=== PATIENT | female | born 1975 | race Caucasian/White ===

== ENCOUNTER → 2016-11-06 | Outpatient (CLI) | payer BC ==
--- NOTE | 2016-11-09 07:44 | MM ---
Reason for exam: clinical finding. Last mammogram was performed 3 years and 2 months ago. History: Took hormonal contraceptives beginning at age 18. Physical Findings: Nurse Summary: 0.5cm nodule in the left breast at 10 o'clock (nurse mayra). MG 3D Diag Mammo W/Cad TARA Bilateral CC and MLO view(s) were taken. Prior study comparison: August 24, 2013, CAD bilateral diagnostic mammogram. July 20, 2012, CAD bilateral diagnostic mammogram. The breast tissue is extremely dense which could obscure a lesion on mammography. There is chronic nodularity bilaterally. There is no dominant lesion. These results were verbally communicated with the patient and result sheet given to the patient on 11/06/16. ASSESSMENT: Incomplete: need additional imaging evaluation, BI-RAD 0 RECOMMENDATION: Ultrasound of the right breast. (palpable) Manage patient on a clinical basis.
--- NOTE | 2016-11-09 07:47 | USB ---
Reason for exam: additional evaluation requested from abnormal screening. History: Took hormonal contraceptives beginning at age 18. US Breast Limited RT Right breast ultrasound demonstrates a 8 x 5 x 5mm solid, vascular lesion at 4 o'clock and a 8 x 4 x 4mm solid, vascuilar lesion at 4 o'clock. These results were verbally communicated with the patient and result sheet given to the patient on 11/06/16. ASSESSMENT: Suspicious, BI-RAD 4 RECOMMENDATION: Ultrasound core biopsy of the right breast. Called Dr. Swanson with mammographic findings and has scheduled an appointment for the patient for 11/12/16 at 4:[address] Jimenez. PRELIMINARY REPORT CALLED AND FAXED TO DR. LEYVA ON 11/09/16 AT 300/TP.
== END | disposition home or self-care (01) ==
LOC: RADMAMWWP 14:45
PROVIDERS: ATTEND Obstetrics & Gynecology
DX: N64.52 Nipple discharge (principal); R92.8 Other abnormal and inconclusive findings on diagnostic imaging of breast
CPT/HCPCS: 76642; G0204; G0279

== ENCOUNTER → 2016-11-30 | Day surgery (SDC) | payer BC ==
[~2016-11-30] MED LIST: ALPRAZolam 0.25 MG TAB ONE; BACITRACIN OINT 1 EACH PACKET TOPICAL ONE; LIDOCAINE 1% INJ 10MG/ML (20 ML MDV) ONE; LIDOCAINE 1%-EPI 1:100,000 20 ML VIAL ONE; SODIUM BICARB 4% 5 ML VIAL (0.48 MEQ/ML) ONE
--- NOTE | 2016-11-30 14:55 | USB ---
EXAMINATION TYPE: US biopsy breast VAD RT, MG diagnostic mammo RT wo CAD DATE OF EXAM: 11/30/2016 1:04 PM CLINICAL HISTORY: N63 BREAST LUMP. Spontaneous right nipple clear discharge. Abnormal ultrasound TECHNIQUE: Ultrasound guided core biopsy of right breast with clip placement and follow-up two-view mammogram. COMPARISON: Mammogram and ultrasound November 06, 2016 FINDINGS: The procedure of ultrasound guided attempted fine-needle aspiration and/or core biopsy was explained to the patient. Benefits, alternatives, and risks were discussed. An informed consent was then obtained. The patient was placed in supine positioning for imaging and for the procedure. Preprocedure imaging redemonstrates cystic lesion with peripheral nodular solid component with significant surrounding vascularity at 4:00 position zone A of the right breast. A second similar type lesion is not clearly identified on today's scanning. The overlying skin was prepped and draped in usual sterile fashion. Lidocaine buffered with bicarbonate was used as anesthetic into the skin. Lidocaine with epinephrine is used as anesthetic into the deeper tissue up to area of concern in the right breast. Under ultrasound guidance, a 12-gauge vacuum assisted biopsy gun device was used to obtain 4 core samples. Following this, a biopsy clip was left in lesion. The patient tolerated the procedure well without any immediate complication. The patient was kept in the radiology department for short stay after the procedure and then discharged home in stable condition. Postprocedure mammogram shows successful visualization of the deployed clip. IMPRESSION: Successful, uncomplicated ultrasound guided core biopsy of area of concern in the right breast, full pathology results to follow. Intermediate index of suspicion. Suspect papilloma. Pathology Results: Benign BREAST, RIGHT, ULTRASOUND GUIDED CORE BIOPSY: INTRADUCTAL PAPILLOMA WITH FOCAL SCLEROSIS. FIBROSIS, CYST FORMATION, APOCRINE METAPLASIA, DUCT ECTASIA AND DUCT HYPERPLASIA. FOCAL FRAGMENTS OF SKIN. Recommendation Surgical consult of the right breast. LILID
== END ==
LOC: RADUSWWP 11:10
PROVIDERS: ATTEND Surgery
DX: D24.1 Benign neoplasm of right breast (principal); N60.31 Fibrosclerosis of right breast; N60.01 Solitary cyst of right breast; N60.81 Other benign mammary dysplasias of right breast; N60.41 Mammary duct ectasia of right breast; N60.91 Unspecified benign mammary dysplasia of right breast; N64.89 Other specified disorders of breast
CPT/HCPCS: 88305; 19083; G0206; A4648; J2001

== ENCOUNTER 2016-12-15 10:22 | Day surgery (SDC) | payer BC ==
[2016-12-10 13:41] VITALS: BMI 35.2
--- NOTE | 2016-12-15 07:57 | P.GSHP ---
History of Present Illness H&P Date: 12/15/16 Chief Complaint: Right breast intraductal papilloma This a 41-year-old female who underwent recent ultrasound core biopsy. Patient' s found have a intraductal papilloma. Patient presents today for right breast biopsy with needle localization. - Constitutional Constitutional: Reports as per HPI Past Medical History Additional Past Medical History / Comment(s): RIGHT BREAST CLEAR DRAINAGE History of Any Multi-Drug Resistant Organisms: None Reported Past Surgical History: Breast Surgery, Orthopedic Surgery Additional Past Surgical History / Comment(s): RT BREAST BX 11/30/16, THYROID NODULE BX BENIGN, RT GREAT TOE SX, RT KNEE ARTHROSCOPY Past Anesthesia/Blood Transfusion Reactions: Previous Problems w/ Anesthesia, Postoperative Nausea & Vomiting (PONV) Additional Past Anesthesia/Blood Transfusion Reaction / Comment(s): STATES B/P WAS ELEVATED POST OP X1 Past Psychological History: No Psychological Hx Reported Smoking Status: Never smoker Past Alcohol Use History: None Reported Past Drug Use History: None Reported - Past Family History Mother Family Medical History: No Reported History Medications and Allergies Home Medications Medication Instructions Recorded Confirmed Type No Known Home Medications [No 12/10/16 12/10/16 History Known Home Medications] Allergies Allergy/AdvReac Type Severity Reaction Status Date / Time No Known Allergies Allergy Verified 12/10/16 13:37 Surgical - Exam - General well developed, no distress - Eyes PERRL - ENT normal pinna - Neck no masses - Respiratory normal expansion - Cardiovascular Rhythm: regular - Abdomen Abdomen: soft, non tender Assessment and Plan Plan: Right breast intraductal papilloma. We'll perform right breast biopsy with needle localization.
[~2016-12-15 10:22] MED LIST changes: -ALPRAZolam 0.25 MG TAB ONE; -BACITRACIN OINT 1 EACH PACKET TOPICAL ONE; +DEXAMETHASONE SOD PHOSPHATE 10 MG/ML 1 ML VIAL IV ONE; +HEPARIN SODIUM,PORCINE 5,000 UNIT/ML 1 ML VIAL SQ ONE; +HYDROmorphone 1 MG/ML 1 ML SYRINGE IVP PRN; +LACTATED RINGERS 1,000 ML IV SCH; +LIDOCAINE 1% 20 ML VIAL (10MG/ML) FOR IV START INTRADERMA PRN; -LIDOCAINE 1% INJ 10MG/ML (20 ML MDV) ONE; -LIDOCAINE 1%-EPI 1:100,000 20 ML VIAL ONE; +ONDANSETRON 4 MG/2 ML VIAL IVP ONE; +Pre Op ABX Message 1 EACH MISC MISCELLANE ONE; +SCOPOLAMINE 1.5MG/72HR PATCH TRANSDERM ONE; -SODIUM BICARB 4% 5 ML VIAL (0.48 MEQ/ML) ONE
[2016-12-15] MEDS ORDERED: ALPRAZolam 0.5 MG TAB PO STA (10:33)
[2016-12-15] MEDS ORDERED: SODIUM BICARB 4% 5 ML VIAL (0.48 MEQ/ML) MISCELLANE ONE (11:42)
[2016-12-15] MEDS ORDERED: LIDOCAINE 1% INJ 10MG/ML (20 ML MDV) SQ ONE (11:42)
[2016-12-15] MEDS ORDERED: BUPIVACAIN-EPI 0.25%-1:200,000 30 ML VIAL SQ ONE ×2 (13:05→13:46)
[2016-12-15] MEDS ORDERED: HYDROmorphone (PF) 1 MG/ML ONE (13:08)
[2016-12-15] MEDS ORDERED: LIDOCAINE 1% INJ 10MG/ML (20 ML MDV) ONE (13:08)
[2016-12-15] MEDS ORDERED: fentaNYL (PF) 50 MCG/ML 2 ML AMP ONE (13:08)
[2016-12-15] MEDS ORDERED: MIDAZOLAM 2 MG/2 ML VIAL ONE (13:08)
[2016-12-15] MEDS ORDERED: PROPOFOL 10 MG/ML 20 ML VIAL IV ONE (13:08)
[2016-12-15] MEDS ORDERED: SODIUM CHLORIDE 0.9% 50 ML with ceFAZolin 2,000 MG IV ONE ×2 (13:28)
--- NOTE | 2016-12-15 13:55 | P.OP ---
Date of Procedure: 12/15/16 Preoperative Diagnosis: Right breast intraductal papilloma Postoperative Diagnosis: Defer to pathology Procedure(s) Performed: Right breast biopsy with needle localization Anesthesia: RIZWANA Surgeon: Eliel Jimenez Estimated Blood Loss (ml): 5 Pathology: other (Right breast biopsy) Condition: stable Disposition: PACU Description of Procedure: The patient's placed on the operating table in the supine position. She received general anesthesia. Her right breast was prepped and draped in usual sterile fashion. The needle had been placed at the 1 o'clock position. A circumareolar skin incision was made at the wire site and then using blunt and sharp dissection with cautery the Harmonic scissors the core tissue was removed around the wire. The Bovie was used for hemostasis.. The skin was closed interrupted 3-0 Monocryl suture. Dermabond was applied. Patient was sent to recovery room stable condition.
[2016-12-15] MEDS ORDERED: LACTATED RINGERS 1,000 ML IV ONE (14:00)
[2016-12-15 14:22] VITALS: TEMP 97.8
[2016-12-15 14:30] VITALS: RESP 16
[2016-12-15] MEDS ORDERED: ONDANSETRON 4 MG/2 ML VIAL IVP ONE (15:12)
--- NOTE | 2016-12-15 16:08 | MM ---
EXAMINATION TYPE: MG pre op needle loc RT DATE OF EXAM: 12/15/2016 12:23 PM COMPARISON: NONE CLINICAL HISTORY: Abnormal pathology results TECHNIQUE: Needle localization with wire placement and surgical excision of area of concern in the ri ght breast. FINDINGS: The procedure of needle localization with wire placement and than surgical excision was exp lained to the patient. Benefits, alternatives, and risks were discussed. An informed consent was th en obtained. The shortest pathway for procedure was chosen. Shortest pathway was medial approach. The overlying s kin was prepped and draped in usual sterile fashion. Lidocaine buffered with bicarbonate was used as anesthetic into the skin and subcutaneous tissue up to the level of area of concern. A 5 cm needle was used. It was placed via a medial approach under mammographic guidance. Subsequent 90 degrees ma mmogram show the needle to be in satisfactory position relative to the targeted area. At this point, wire was placed and the needle was withdrawn. The wire was fixed to patient's skin. Images were ma rked for surgeon. The patient tolerated the procedure well without any immediate complication. The patient was kept in the radiology department for short stay after the procedure and then taken to surgery for surgical e xcision. Localized core marker and wire are identified in specimen mammogram. The patient was kept in hospit al for short stay after the procedure and then discharged home in stable condition. IMPRESSION: Successful, uncomplicated needle localization with wire placement and surgical excision o f prior core marker from previous abnormal pathology in the right breast, full pathology results to reed kenny.
--- NOTE | 2016-12-15 16:08 | MM ---
EXAMINATION TYPE: MG pre op needle loc RT DATE OF EXAM: 12/15/2016 12:23 PM COMPARISON: NONE CLINICAL HISTORY: Abnormal pathology results TECHNIQUE: Needle localization with wire placement and surgical excision of area of concern in the right breast. FINDINGS: The procedure of needle localization with wire placement and than surgical excision was explained to the patient. Benefits, alternatives, and risks were discussed. An informed consent was then obtained. The shortest pathway for procedure was chosen. Shortest pathway was medial approach. The overlying skin was prepped and draped in usual sterile fashion. Lidocaine buffered with bicarbonate was used as anesthetic into the skin and subcutaneous tissue up to the level of area of concern. A 5 cm needle was used. It was placed via a medial approach under mammographic guidance. Subsequent 90 degrees mammogram show the needle to be in satisfactory position relative to the targeted area. At this point, wire was placed and the needle was withdrawn. The wire was fixed to patient's skin. Images were marked for surgeon. The patient tolerated the procedure well without any immediate complication. The patient was kept in the radiology department for short stay after the procedure and then taken to surgery for surgical excision. Localized core marker and wire are identified in specimen mammogram. The patient was kept in hospital for short stay after the procedure and then discharged home in stable condition. IMPRESSION: Successful, uncomplicated needle localization with wire placement and surgical excision of prior core marker from previous abnormal pathology in the right breast, full pathology results to follow. Pathology Results: High Risk BREAST, RIGHT, NEEDLE LOCALIZATION EXCISION: INTRADUCTAL PAPILLOMA WITH SCLEROSIS, FAVOR EXTENDING TO THE MARGIN OF EXCISION (SEE NOTE). PREVIOUS BIOPSY SITE CHANGES AND FIBROCYSTIC CHANGES INCLUDING FIBROSIS AND CYSTS. DUCT ECTASIA. Recommendation Surgical consult of the right breast. NICHELLE
[2016-12-15 16:27] VITALS: BP 153/99; PULSE 71
== END 2016-12-15 16:41 | disposition home or self-care (01) ==
LOC: OR 10:22
PROVIDERS: ATTEND Surgery
DX: D24.1 Benign neoplasm of right breast (principal); N60.11 Diffuse cystic mastopathy of right breast; N60.41 Mammary duct ectasia of right breast; R92.8 Other abnormal and inconclusive findings on diagnostic imaging of breast
CPT/HCPCS: 19125; 88342; 88307; 88341; 76098; 19281; J2250; J1644; J1100; J2405; J2001; J3010; J1170; J0690; J2704

== ENCOUNTER → 2018-04-08 | Outpatient (CLI) | payer BC ==
--- NOTE | 2018-04-10 14:52 | CT ---
EXAMINATION TYPE: CT abdomen pelvis wo/w con DATE OF EXAM: 04/08/2018 HISTORY: Intra abdominal mass and swelling. CT DLP: 2935mGycm Automated Exposure Control for Dose Reduction was Utilized. CONTRAST: CT scan of the abdomen and pelvis is performed without and with IV Contrast, patient injected with 10 0ml mL of Isovue M300. COMPARISON: None. FINDINGS: LUNG BASES: Lung bases are unremarkable. Surgical clips are noted within the right breast. LIVER/GB: The unenhanced images demonstrate no evidence of hepatic steatosis. Within the right hepati c lobe segment 8 there is a 8 mm too small to accurately characterize this likely represents a [place] ioma as there is centripetal filling on delayed imaging. This could be confirmed with MR if clinicall y indicated. Additionally there is a probable cyst with no enhancement in segment IVb measuring 6 mm. No cholelithiasis. PANCREAS: There are multiple subcentimeter hypoattenuated pancreatic lesions such as on series 5 imag e 37 measuring 3 mm, image 34 measuring 2 mm, image 33 measuring 2 mm, and image 35 measuring 4 mm. T hese are located within the pancreatic head and proximal body. No main pancreatic ductal dilatation i s seen. SPLEEN: No significant abnormality is seen. Splenomegaly. ADRENALS: No significant abnormality is seen. KIDNEYS: The unenhanced images demonstrate no evidence of nephrolithiasis. The right ureter is minima lly dilated with mild blunting of the right calyces. Obstruction is suspected from mass effect upon t he right ureter in its distal portion between the psoas and intra-abdominal mass described below. BOWEL: No dilated large or small bowel is seen. UTERUS/ADNEXA: Diffusely enlarged heterogenous most likely relating to uterine leiomyomas although di rect visualization or ultrasound are recommended as there is extent into the lower uterine segment to wards the cervix to exclude mass. LYMPH NODES: No greater than 1cm abdominal or pelvic lymph nodes are appreciated. OSSEOUS STRUCTURES: Osseous structures appear intact. OTHER: There is a large complex intra-abdominal mesenteric mass that is not contiguous with the enlar ged and heterogenous uterus. This is centered at the L4-L5 level and measures 11.7 x 7.0 x 10.7 cm in transverse by anterior posterior by craniocaudal dimension. This contains macroscopic fat and fluid/ fluid as well as fluid/fat levels indicative of internal hemorrhage. Of note the left renal vein exte nds directly towards this mass. Right ovary is seen inferiorly with cystic/follicular change. IMPRESSION: 1. Large pelvic intra-abdominal mass containing macroscopic fat. Of note the left gonadal vein abuts this mass and no left ovarian separate tissue is seen. Therefore this could represent a teratoma or m esenteric liposarcoma. Pelvic ultrasound may be of benefit to evaluate for any separate left ovarian tissue. If a separate left ovary is identified then mesenteric liposarcoma would be considered much m ore likely. This appears separate from the enlarged and diffusely heterogenous fibroid uterus. Additi onally there is mass effect upon the right distal ureter creating mild right and hydroureter ureteral nephrosis. 2. Probable right hepatic hemangioma and smaller cyst although confirmation with enhanced MRI is benedict mmended in this patient with right breast surgical clips and possible history of right breast cancer. 3. Multiple subcentimeter cystic appearing pancreatic lesions for which further characterization with enhanced MRCP is recommended to evaluate for continuity with the main pancreatic duct (IPMN).
== END | disposition home or self-care (01) ==
LOC: RADCTMAIN 15:48
PROVIDERS: ATTEND Family Medicine
DX: R19.09 Other intra-abdominal and pelvic swelling, mass and lump (principal)
CPT/HCPCS: 74178; Q9967

== ENCOUNTER → 2018-04-18 | Outpatient (CLI) | payer BC ==
--- NOTE | 2018-04-18 12:57 | MR ---
EXAMINATION TYPE: MR MRCP DATE OF EXAM: 04/18/2018 COMPARISON: CT abdomen pelvis April 08, 2018 HISTORY: Pancreatic lesion Standard multiplanar, multisequence MRI departmental protocol Multiplanar, multisequence images of the abdomen focusing on the pancreas were acquired. Thin and thi ck slice MRCP imaging is post processed on MRI scanner. FINDINGS: PANCREAS/BILIARY SYSTEM: Pancreas remains overall normal in size, correlating with CT there are few s ubcentimeter T2 hyperintense foci. MRCP images shows visualization of pancreatic duct which is nondil ated to the ampulla without suspicious side branching. Lesions are overall too small to definitively characterize but almost certainly benign. For reference lesion distal body coronal image 16 and axial image 32 is noted series 601. Contrast not given. No surrounding inflammatory change noted. No suspi cious intrahepatic or extrahepatic biliary dilatation. Gallbladder felt within normal limits. OTHER: Simple appearing subcentimeter cyst right hepatic lobe axial image 20 is present. Roughly 1 cm round T2 hyperintense lesion anteriorly axial image 29 is redemonstrated favoring hemangioma as ther e is some nodular peripheral enhancement on comparison CT. There is partial visualization of large lower abdominal heterogeneous mass containing fat and soft ti ssue density with local mass effect seen best coronal image 10. Visualized lung bases are clear. No suspicious bowel dilatation is seen. The spleen, both kidneys, an d both adrenal glands are normal in size and appear grossly unremarkable. No concerning abdominal flu id collection is seen. Visualized osseous structures are intact. IMPRESSION: Tiny pancreatic lesions do not show definitive ductal communication. Suboptimally evaluat ed without IV contrast. Almost certainly benign. Advise repeat imaging in one year time to ensure sta bility. Partial visualization of well-defined large lower abdominal mass seen better on recent CT. In cidental hepatic nonsimple cyst favors hemangioma.
== END | disposition home or self-care (01) ==
LOC: RADMRIMAIN 10:58
PROVIDERS: ATTEND Family Medicine
DX: K86.89 Other specified diseases of pancreas (principal); R19.00 Intra-abdominal and pelvic swelling, mass and lump, unspecified site
CPT/HCPCS: 74181

== ENCOUNTER → 2019-04-18 | Outpatient (CLI) | payer BC ==
--- NOTE | 2019-04-18 10:58 | P.STRESS ---
- Stress Test Note Stress Test Results/Findings: Exam Performed: stress echo exercise with con Exam Date: 04/18/19 Reason for Exam: ABN ECG Height: 5 ft 5 in Weight: 104.326 kg Protocol: STRESS ECHO Stage: 3 Duration of Exercise: 8:26 Resting Heart Rate: 69 Resting Blood Pressure: 125/80 Maximum Achieved Heart Rate: 161 Maximum Achieved Blood Pressure: 202/101 85% PMHR: 152 100% PMHR: 179 METS: 10.1 Technologist Comment: Stress Test Results/Findings: Baseline heart 697 Baseline blood pressure 125/80 mmHg baseline 12-lead ECG shows sinus rhythm with normal ST segments incomplete right bundle branch block pattern Patient exercised on a Wiliam protocol for 8 minutes 26 seconds achieving a peak 100 167 beats a minute. Mildly hypertensive response to exercise. Peak blood pressure 202/101 mmHg The ECG is during stress testing had a lot of artifact and are uninterpretable. However on immediate recovery the ECG does not show any ST segment abnormalities Baseline 2-D echo images showed normal LV size and systolic function without segmental wall motion abnormalities but the images are suboptimal and therefore Definity contrast was used At peak exercise there was excellent augmentation overall contractility without pulmonary wall motion abnormalities @Recovery reasonably strong function remained normal Impression average exercise capacity No ECG evidence of ischemia at immediate recovery that all other ECGs during exercise was suboptimal on account of significant baseline artifact Stress echo images did not show any evidence of ischemia
== END | disposition home or self-care (01) ==
LOC: RADNMMAIN 08:54
PROVIDERS: ATTEND Family Medicine
DX: R94.31 Abnormal electrocardiogram [ECG] [EKG] (principal)
CPT/HCPCS: 93351; Q9950

== ENCOUNTER → 2019-09-19 | Outpatient (CLI) | payer BC ==
--- NOTE | 2019-09-20 10:05 | MM ---
Reason for exam: screening (asymptomatic). Last mammogram was performed 2 years and 10 months ago. History: Patient has history of high-risk lesion on a previous biopsy at age 41. Family history of breast cancer in maternal aunt at age 62. High risk MG pre op needle loc RT of the right breast, December 15, 2016. Benign US biopsy breast VAD RT of the right breast, November 30, 2016. Took hormonal contraceptives beginning at age 18. Physical Findings: A clinical breast exam by your physician is recommended on an annual basis and results should be correlated with mammographic findings. MG 3D Screening Mammo W/Cad Bilateral CC and MLO view(s) were taken. Prior study comparison: November 30, 2016, right breast MG diagnostic mammo RT wo CAD. November 06, 2016, bilateral MG 3d diag mammo w/cad TARA. The breast tissue is extremely dense which could obscure a lesion on mammography. Focal asymmetry left upper outer quadrant posterior position. Post biopsy changes in the right breast. This finding is changed when compared with previous exams. ASSESSMENT: Incomplete: need additional imaging evaluation, BI-RAD 0 RECOMMENDATION: Special view mammogram of the left breast. If lesion persists on supplemental views, image directed ultrasound is recommended. [facility] will attempt to contact patient to return for supplemental views and ultrasound if indicated.
== END | disposition home or self-care (01) ==
LOC: RADMAMWWP 06:55
PROVIDERS: ATTEND Family Medicine
DX: Z12.39 Encounter for other screening for malignant neoplasm of breast (principal)
CPT/HCPCS: 77063; 77067

== ENCOUNTER → 2019-10-02 | Outpatient (CLI) | payer BC ==
--- NOTE | 2019-10-03 10:08 | MM ---
Reason for exam: additional evaluation requested from abnormal screening. Last mammogram was performed less than 1 month ago. History: Patient has history of high-risk lesion on a previous biopsy at age 41. Family history of breast cancer in maternal aunt at age 62 and breast cancer in mother at age 62. High risk MG pre op needle loc RT of the right breast, December 15, 2016. Benign US biopsy breast VAD RT of the right breast, November 30, 2016. Took hormonal contraceptives for 9 years beginning at age 18. Physical Findings: (nurse TM). MG 3D Work Up W/Cad LT Spot compression CC, spot compression MLO, and LM view(s) were taken of the left breast. Prior study comparison: September 19, 2019, bilateral MG 3d screening mammo w/cad. November 30, 2016, right breast MG diagnostic mammo RT wo CAD. The breast tissue is extremely dense which could obscure a lesion on mammography. Persistent mass upper outer quadrant left breast 10cm from nipple. These results were verbally communicated with the patient and result sheet given to the patient on 10/02/19. ASSESSMENT: Incomplete: need additional imaging evaluation, BI-RAD 0 RECOMMENDATION: Ultrasound of the left breast.
--- NOTE | 2019-10-03 10:19 | USB ---
Reason for exam: additional evaluation requested from abnormal screening. History: Patient has history of high-risk lesion on a previous biopsy at age 41. Family history of breast cancer in maternal aunt at age 62 and breast cancer in mother at age 62. High risk MG pre op needle loc RT of the right breast, December 15, 2016. Benign US biopsy breast VAD RT of the right breast, November 30, 2016. Took hormonal contraceptives for 9 years beginning at age 18. US Breast Workup Limited LT Left limited breast ultrasound including focal area of concern, retroareolar and axilla demonstrates a 1.9 x 1.7 x 0.9cm hypoechoic lesion at 3 o'clock. These results were verbally communicated with the patient and result sheet given to the patient on 10/02/19. ASSESSMENT: Suspicious, BI-RAD 4 RECOMMENDATION: Ultrasound core biopsy of the left breast. (or aspiration) Called Dr. Mario with mammographic findings and has scheduled an appointment for the patient for 10/10/19 at 3:[address] Jimenez. PRELIMINARY REPORT CALLED AND FAXED TO DR. JIMENEZ ON 10/03/19.
== END | disposition home or self-care (01) ==
LOC: RADMAMWWP 14:51
PROVIDERS: ATTEND Family Medicine
DX: R92.8 Other abnormal and inconclusive findings on diagnostic imaging of breast (principal)
CPT/HCPCS: 77061; 77065

== ENCOUNTER → 2019-10-31 | Day surgery (SDC) | payer BC ==
[2019-10-31 12:14] VITALS: RESP 12
[2019-10-31 13:02] VITALS: BP 116/83; PULSE 60; TEMP 97.5
--- NOTE | 2019-10-31 14:30 | USB ---
EXAMINATION TYPE: US biopsy breast VAD LT, MG diagnostic mammo LT wo CAD DATE OF EXAM: 10/31/2019 CLINICAL HISTORY: 44-year-old female R92.8 Abnormal Mammo. TECHNIQUE: Ultrasound guided core biopsy of 3:00 left breast. COMPARISON: 10/02/2019 and 09/19/2019 FINDINGS: The procedure of ultrasound guided core biopsy was explained to the patient. Benefits, alternatives, and risks were discussed. An informed consent was then obtained. The circumscribed, ovoid, isoechoic lesion measuring 1.7 cm is redemonstrated. We note posterior through transmission, possible fibroadenoma. The patient was placed in supine positioning for imaging and for the procedure. The overlying skin was prepped and draped in usual sterile fashion. Lidocaine was used as anesthetic into the skin and subcutaneous tissue up to area of concern in the 3:00 left breast. Under ultrasound guidance, a 13-gauge vacuum-assisted mammotome Elite biopsy gun was used to obtain 5 core samples. Following this, a coil clip was left in lesion. The patient tolerated the procedure well without any immediate complication. The patient was kept in the radiology department for short stay after the procedure and then discharged home in stable condition. Postprocedure mammogram shows clip positioned at 3:00 corresponding to the site of mammographic focal asymmetry. IMPRESSION: Successful, uncomplicated ultrasound guided core biopsy of area of concern in the 3:00 left breast, possible fibroadenoma corresponding to the sonographic abnormality, full pathology results to follow. Pathology Results: Benign LEFT BREAST, ULTRASOUND GUIDED CORE BIOPSY: Fibroadenoma. Recommendation Follow up mammogram of the left breast in 6 months NICHELLE
== END ==
LOC: RADUSWWP 11:44
PROVIDERS: ATTEND Surgery
DX: D24.2 Benign neoplasm of left breast (principal)
CPT/HCPCS: 88305; 77065; 19083; A4648; J2001

== ENCOUNTER → 2019-11-22 | Outpatient (CLI) | payer BC ==
[2019-11-22 16:33] LABS: T4, Free (Free Thyroxine) 1.2 ng/dL (0.80-1.80)
== END | disposition home or self-care (01) ==
LOC: LABWHC1 07:26
PROVIDERS: ATTEND Internal Medicine Endocrinology, Diabetes & Metabolism
DX: E04.2 Nontoxic multinodular goiter (principal)
CPT/HCPCS: 36415; 84439; 84443

== ENCOUNTER → 2020-05-24 | Outpatient (CLI) | payer BC ==
--- NOTE | 2020-05-24 14:23 | MR ---
MR liver with and without contrast HISTORY: Previous abnormal imaging studies, Pancreatic lesion, liver disease Multiplanar multisequence and postcontrast images obtained through the liver following 11.[address] IV. Correlation to prior MRCP 04/18/2018, CT scan abdomen pelvis 04/08/2018 The lung bases are clear, there is no pleural or pericardial effusion. The liver is enlarged. The dominant lesion within the liver shows a stable appearance consistent with hemangioma, smaller cystic focus in the inferior right lobe medially is no longer seen. Signal drop on out of phase imaging is consistent with underlying hepatic steatosis. Pancreas shows no mass. Gall bladder shows some nodularity, nondependent portions of the gallbladder shows focal low signal on T2, intermediate signal on T1-weighted sequences which are likely present on prior. There is no ascites. The adrenal glands, kidneys, spleen are within normal limits. No retroperitoneal adenopathy. Aorta sh ows normal caliber. No bowel obstruction. IMPRESSION: No significant abnormalities evident.
== END | disposition home or self-care (01) ==
LOC: RADMRIMAIN 11:56
PROVIDERS: ATTEND Nurse Practitioner Family
DX: K76.9 Liver disease, unspecified (principal)
CPT/HCPCS: 74183; A9585

== ENCOUNTER → 2020-07-16 | Outpatient (CLI) | payer BC ==
--- NOTE | 2020-07-17 09:05 | MM ---
Reason for exam: follow-up at short interval from prior study. Last mammogram was performed 8 months ago. History: Patient has history of high-risk lesion on a previous biopsy at age 41. Family history of breast cancer in maternal aunt at age 62 and breast cancer in mother at age 62. Benign US biopsy breast VAD LT of the left breast, October 31, 2019. High risk MG pre op needle loc RT of the right breast, December 15, 2016. Benign US biopsy breast VAD RT of the right breast, November 30, 2016. Took hormonal contraceptives for 9 years beginning at age 18. Physical Findings: Nurse did not find any significant physical abnormalities on exam. MG 3D Diag Mammo W/Cad LT CC and MLO view(s) were taken of the left breast. Prior study comparison: October 31, 2019, left breast MG diagnostic mammo LT wo CAD. October 02, 2019, left breast MG 3d work up w/cad LT. The breast tissue is heterogeneously dense. This may lower the sensitivity of mammography. There is chronic nodularity in the left breast with biopsy clip. Lateral asymmetric density middle depth does not clearly persist on 3D. 8mm circumscribed nodule lateral posterior depth more defined. These results were verbally communicated with the patient and result sheet given to the patient on 07/16/20. ASSESSMENT: Incomplete: need additional imaging evaluation, BI-RAD 0 RECOMMENDATION: Ultrasound of the left breast. (upper outer quadrant)
--- NOTE | 2020-07-17 09:08 | USB ---
Reason for exam: additional evaluation requested from abnormal screening. History: Patient has history of high-risk lesion on a previous biopsy at age 41. Family history of breast cancer in maternal aunt at age 62 and breast cancer in mother at age 62. Benign US biopsy breast VAD LT of the left breast, October 31, 2019. High risk MG pre op needle loc RT of the right breast, December 15, 2016. Benign US biopsy breast VAD RT of the right breast, November 30, 2016. Took hormonal contraceptives for 9 years beginning at age 18. US Breast Limited LT Left limited breast ultrasound including focal area of concern, retroareolar and axilla demonstrates a 4 x 4 x 4mm oval, cystic, benign lesion at 2 o'clock and a 16 x 10 x 20mm oval, solid, hypoechoic lesion at 3 o'clock, previously biopsied, benign, fibroadenoma. Scanned 12-3 o'clock. 6 month follow up mammogram. These results were verbally communicated with the patient and result sheet given to the patient on 07/16/20. ASSESSMENT: Probably benign, BI-RAD 3 RECOMMENDATION: Follow-up diagnostic mammogram of both breasts in 4 months. Back on schedule for October 2020.
== END | disposition home or self-care (01) ==
LOC: RADMAMWWP 14:36
PROVIDERS: ATTEND Family Medicine
DX: R92.8 Other abnormal and inconclusive findings on diagnostic imaging of breast (principal)
CPT/HCPCS: 77061; 77065

== ENCOUNTER → 2020-10-22 | Outpatient (CLI) | payer BC ==
--- NOTE | 2020-10-23 09:51 | MM ---
Reason for exam: follow-up at short interval from prior study. Last mammogram was performed 3 months ago. History: Patient has history of high-risk lesion on a previous biopsy at age 41. Family history of breast cancer in maternal aunt at age 62 and breast cancer in mother at age 62. Benign US biopsy breast VAD LT of the left breast, October 31, 2019. High risk MG pre op needle loc RT of the right breast, December 15, 2016. Benign US biopsy breast VAD RT of the right breast, November 30, 2016. Took hormonal contraceptives for 9 years beginning at age 18. Physical Findings: Nurse Summary: 1cm nodule in the left breast at 1 o'clock (nurse mj). MG 3D Diag Mammo W/Cad TARA Bilateral CC and MLO view(s) were taken. Prior study comparison: July 16, 2020, left breast MG 3d diag mammo w/cad LT. October 31, 2019, left breast MG diagnostic mammo LT wo CAD. The breast tissue is heterogeneously dense. This may lower the sensitivity of mammography. Finding: There are clips in the subareolar position of the right breast consistent with known excisional changes. Previous mammotome biopsy in the left breast. These results were verbally communicated with the patient and result sheet given to the patient on 10/22/20. ASSESSMENT: Incomplete: need additional imaging evaluation, BI-RAD 0 RECOMMENDATION: Ultrasound of the left breast.
--- NOTE | 2020-10-23 09:53 | USB ---
Reason for exam: additional evaluation requested from abnormal screening. History: Patient has history of high-risk lesion on a previous biopsy at age 41. Family history of breast cancer in maternal aunt at age 62 and breast cancer in mother at age 62. Benign US biopsy breast VAD LT of the left breast, October 31, 2019. High risk MG pre op needle loc RT of the right breast, December 15, 2016. Benign US biopsy breast VAD RT of the right breast, November 30, 2016. Took hormonal contraceptives for 9 years beginning at age 18. US Breast Limited LT Left limited breast ultrasound including focal area of concern, retroareolar and axilla demonstrates no cystic or solid lesion seen. These results were verbally communicated with the patient and result sheet given to the patient on 10/22/20. ASSESSMENT: Negative, BI-RAD 1 RECOMMENDATION: Routine screening mammogram of both breasts in 1 year.
== END | disposition home or self-care (01) ==
LOC: RADMAMWWP 14:02
PROVIDERS: ATTEND Family Medicine
DX: D24.9 Benign neoplasm of unspecified breast (principal); N63.20 Unspecified lump in the left breast, unspecified quadrant; R92.8 Other abnormal and inconclusive findings on diagnostic imaging of breast
CPT/HCPCS: 77062; 77066

== ENCOUNTER → 2021-11-18 | Outpatient (CLI) | payer BC ==
--- NOTE | 2021-11-20 11:28 | MM ---
Reason for exam: screening (asymptomatic). Last mammogram was performed 1 year and 1 month ago. History: Patient is postmenopausal and has history of high-risk lesion on a previous biopsy at age 41. Family history of breast cancer in maternal aunt at age 62 and breast cancer in mother at age 62. Benign US biopsy breast VAD LT of the left breast, October 31, 2019. High risk MG pre op needle loc RT of the right breast, December 15, 2016. Benign US biopsy breast VAD RT of the right breast, November 30, 2016. Took hormonal contraceptives for 9 years beginning at age 18. Physical Findings: A clinical breast exam by your physician is recommended on an annual basis and results should be correlated with mammographic findings. MG 3D Screening Mammo W/Cad Bilateral CC, MLO, and XCCL view(s) were taken. Prior study comparison: October 22, 2020, bilateral MG 3d diag mammo w/cad TARA. July 16, 2020, left breast MG 3d diag mammo w/cad LT. The breast tissue is heterogeneously dense. This may lower the sensitivity of mammography. Previous mammotome biopsy in the left breast. There is chronic nodularity in the left breast. Post excisional changes anterior right breast. No significant changes when compared with prior studies. ASSESSMENT: Benign, BI-RAD 2 RECOMMENDATION: Routine screening mammogram of both breasts in 1 year. Patient should continue monthly self breast exams. A negative report should not preclude additional follow up of suspicious palpable abnormalities.
== END | disposition home or self-care (01) ==
LOC: RADMAMWWP 10:58
PROVIDERS: ATTEND Family Medicine
DX: Z12.31 Encounter for screening mammogram for malignant neoplasm of breast (principal); Z78.0 Asymptomatic menopausal state; Z80.3 Family history of malignant neoplasm of breast
CPT/HCPCS: 77063; 77067